=== PATIENT | male | born 1965 | race Caucasian/White ===

== ENCOUNTER 2016-09-25 13:10 | Emergency (ER) | payer BC ==
[2016-09-25] MEDS ORDERED: Aspirin Low Dose CHEW TAB* 81 MG PO ONE ×2 (13:26→13:56)
[2016-09-25 13:55] LABS: Hematocrit 44 % (42-52); Hemoglobin 14.9 g/dl (14.0-18.0); Mean Corpuscular HGB Conc 34 g/dl (31-36); Mean Corpuscular Hemoglobin 32 pg (27-31); Mean Corpuscular Volume 96 fL (80-94); Mean Platelet Volume 7 um3 (7.4-10.4); Red Blood Count 4.58 10^6/ul (4.0-5.4); Red Cell Distribution Width 13 % (10.5-15); White Blood Count 6.3 10^3/ul (3.5-10.8)
[2016-09-25 14:12] LABS: Albumin 4.4 g/dL (3.2-5.2); Calcium 9.5 mg/dL (8.6-10.3); EGFR Non-African American 71.5 (>60); Total Bilirubin 0.5 mg/dL (0.2-1.0); Total Protein 7.4 g/dL (6.4-8.9)
--- NOTE | 2016-09-25 14:49 | RAD ---
INDICATION: Chest pain COMPARISON: None. TECHNIQUE: Single AP portable view of the chest was obtained. FINDINGS: Image quality is compromised due to the relative inferiority of a portable chest x-ray. The heart and mediastinum exhibit normal size and contour. The lungs are grossly clear. There is no evidence of a large pleural effusion. Visualized bones are normal for the patient's age. IMPRESSION: No radiographic evidence for acute cardiopulmonary abnormality on this portable chest x-ray.
--- NOTE | 2016-09-25 17:56 | ED ---
Colleen Couch Michael, scribed for Stacia Jose MD on 09/25/16 at 1351 . HPI Chest Pain - HPI Summary HPI Summary: 51 y/o male comes to the ED presenting with intermittent episodes of CP that started 2 weeks ago. The pt is unable to describe the pain. He states it is "annoyance". The pain radiates down his LUE. The pain is not aggravated with deep breathes and it is alleviated with ASA. He states the last episode of CP started at 1100 today. The pt also presents with elevated bp of 177/103 at the ED, and last night it was 140/100. The FHx is significant for [place] before the age of 55 and PE. - History of Current Complaint Chief Complaint: EDChestPainROMI Time Seen by Provider: 09/25/16 13:25 Hx Obtained From: Patient, Medical Records Onset/Duration: Started Weeks Ago, Still Present Timing: Intermittent Initial Severity: Mild Current Severity: Mild Pain Intensity: 1 Pain Scale Used: 0-10 Numeric Chest Pain Location: Left Lateral Chest Pain Radiates: Yes Chest Pain Radiates To:: Arm - LUE Character: Other: - "annoyance" Aggravating Factor(s): Nothing Alleviating Factor(s): OTC Meds - ASA Associated Signs and Symptoms: Positive: Chest Pain, Other: - elevated blood pressure - Allergy/Home Medications Allergies/Adverse Reactions: Allergies Allergy/AdvReac Type Severity Reaction Status Date / Time No Known Allergies Allergy Verified 09/25/16 13:30 Home Medications: Home Medications Losartan Potassium [Cozaar] 50 mg PO DAILY 09/25/16 [History Confirmed 09/25/16] PMH/Surg Hx/FS Hx/Imm Hx Endocrine/Hematology History: Denies: Hx Diabetes Infectious Disease History: No Infectious Disease History: Denies: Traveled Outside the [place] in Last 30 Days - Family History Known Family History: Positive: None Negative: Cardiac Disease - Social History Occupation: Employed Full-time Lives: With Family Alcohol Use: Weekly Hx Substance Use: No Substance Use Type: Reports: None Review of Systems Negative: Fever Positive: Chest Pain, Other - elevated bp All Other Systems Reviewed And Are Negative: Yes Physical Exam Triage Information Reviewed: Yes Vital Signs On Initial Exam: Initial Vitals Temp Pulse Resp BP Pulse Ox 99.9 F 97 15 186/120 96 09/25/16 13:26 09/25/16 13:26 09/25/16 13:26 09/25/16 13:26 09/25/16 13:26 Vital Signs Reviewed: Yes Appearance: Positive: Well-Appearing, No Pain Distress Skin: Positive: Warm, Skin Color Reflects Adequate Perfusion, Dry Eyes: Positive: EOMI, NATHANIEL ENT: Positive: Pharynx normal, TMs normal Neck: Positive: Supple, Nontender Respiratory/Lung Sounds: Positive: Clear to Auscultation, Breath Sounds Present. Negative: Rales, Rhonchi, Wheezes Cardiovascular: Positive: RRR, Other - no gallops. Negative: Murmur, Rub Abdomen Description: Positive: Nontender, Soft, Other: - no rebound. Negative: Guarding Bowel Sounds: Positive: Present Musculoskeletal: Positive: Strength/ROM Intact. Negative: Edema Left, Edema Right Neurological: Positive: Sensory/Motor Intact, Alert, Oriented to Person Place, Time, CN Intact II-III Psychiatric: Positive: Affect/Mood Appropriate Diagnostics - Vital Signs Vital Signs Temp Pulse Resp BP Pulse Ox 09/25/16 13:26 99.9 F 97 15 186/120 96 - Laboratory Lab Results: Lab Results 09/25/16 09/25/16 09/25/16 Range/Units 13:38 13:38 13:38 WBC 6.3 (3.5-10.8) 10^3/ul RBC 4.58 (4.0-5.4) 10^6/ul Hgb 14.9 (14.0-18.0) g/dl Hct 44 (42-52) % MCV 96 H (80-94) fL MCH 32 H (27-31) pg MCHC 34 (31-36) g/dl RDW 13 (10.5-15) % Plt Count 216 (150-450) 10^3/ul MPV 7 L (7.4-10.4) um3 Neut % (Auto) 70.3 (38-83) % Lymph % (Auto) 21.6 L (25-47) % Cole % (Auto) 7.1 (1-9) % Eos % (Auto) 0.2 (0-6) % Baso % (Auto) 0.8 (0-2) % Absolute Neuts (auto) 4.4 (1.5-7.7) 10^3/ul Absolute Lymphs (auto) 1.4 (1.0-4.8) 10^3/ul Absolute Monos (auto) 0.4 (0-0.8) 10^3/ul Absolute Eos (auto) 0 (0-0.6) 10^3/ul Absolute Basos (auto) 0 (0-0.2) 10^3/ul Absolute Nucleated RBC 0 10^3/ul Nucleated RBC % 0 Sodium 137 (133-145) mmol/L Potassium 4.0 (3.5-5.0) mmol/L Chloride 105 (101-111) mmol/L Carbon Dioxide 25 (22-32) mmol/L Anion Gap 7 (2-11) mmol/L BUN 13 (6-24) mg/dL Creatinine 1.08 (0.67-1.17) mg/dL Est GFR ( Amer) 92.0 (>60) Est GFR (Non-Af Amer) 71.5 (>60) BUN/Creatinine Ratio 12.0 (8-20) Glucose 107 H (70-100) mg/dL Lactic Acid 1.2 (0.5-2.0) mmol/L Calcium 9.5 (8.6-10.3) mg/dL Total Bilirubin 0.50 (0.2-1.0) mg/dL AST 21 (13-39) U/L ALT 36 (7-52) U/L Alkaline Phosphatase 40 (34-104) U/L Troponin I 0.00 (<0.04) ng/mL Total Protein 7.4 (6.4-8.9) g/dL Albumin 4.4 (3.2-5.2) g/dL Globulin 3.0 (2-4) g/dL Albumin/Globulin Ratio 1.5 (1-3) 09/25/ Range/Units 17:00 WBC (3.5-10.8) 10^3/ul RBC (4.0-5.4) 10^6/ul Hgb (14.0-18.0) g/dl Hct (42-52) % MCV (80-94) fL MCH (27-31) pg MCHC (31-36) g/dl RDW (10.5-15) % Plt Count (150-450) 10^3/ul MPV (7.4-10.4) um3 Neut % (Auto) (38-83) % Lymph % (Auto) (25-47) % Cole % (Auto) (1-9) % Eos % (Auto) (0-6) % Baso % (Auto) (0-2) % Absolute Neuts (auto) (1.5-7.7) 10^3/ul Absolute Lymphs (auto) (1.0-4.8) 10^3/ul Absolute Monos (auto) (0-0.8) 10^3/ul Absolute Eos (auto) (0-0.6) 10^3/ul Absolute Basos (auto) (0-0.2) 10^3/ul Absolute Nucleated RBC 10^3/ul Nucleated RBC % Sodium (133-145) mmol/L Potassium (3.5-5.0) mmol/L Chloride (101-111) mmol/L Carbon Dioxide (22-32) mmol/L Anion Gap (2-11) mmol/L BUN (6-24) mg/dL Creatinine (0.67-1.17) mg/dL Est GFR ( Amer) (>60) Est GFR (Non-Af Amer) (>60) BUN/Creatinine Ratio (8-20) Glucose (70-100) mg/dL Lactic Acid (0.5-2.0) mmol/L Calcium (8.6-10.3) mg/dL Total Bilirubin (0.2-1.0) mg/dL AST (13-39) U/L ALT (7-52) U/L Alkaline Phosphatase (34-104) U/L Troponin I 0.00 (<0.04) ng/mL Total Protein (6.4-8.9) g/dL Albumin (3.2-5.2) g/dL Globulin (2-4) g/dL Albumin/Globulin Ratio (1-3) Result Diagrams: 09/25/16 13:38 09/25/16 13:38 Lab Statement: Any lab studies that have been ordered have been reviewed, and results considered in the medical decision making process. - Radiology CXR Xray Interpretation: No Acute Changes Radiology Interpretation Completed By: ED Physician - EKG EK EKG Rhythm: Sinus Rhythm ST Segment: Normal Ectopy: None Chest Pain Course/Dx - Course Course Of Treatment: pt aware he needs to return if chest pain returns and will f/u with pmd and get a stress test - Diagnoses Provider Diagnoses: Chest pain Provider Diagnoses: (Ruled Out): Chest pain as manifestation of blood transfusion reaction Discharge - Discharge Plan Condition: Stable Disposition: HOME The documentation as recorded by the Colleen root Michael accurately reflects the service I personally performed and the decisions made by me, Stacia Jose MD.
[2016-09-25 18:14] VITALS: BP 148/105
== END 2016-09-25 18:10 | disposition home or self-care (01) ==
LOC: ED 13:10
DX: R07.9 Chest pain, unspecified (principal); R03.0 Elevated blood-pressure reading, without diagnosis of hypertension
CPT/HCPCS: 36415; 71010; 80053; 83605; 84484; 85025; 93005; 99283; A9270-GY

== ENCOUNTER 2016-12-26 00:41 | Emergency (ER) | payer BC ==
[2016-12-26 02:02] VITALS: BP 145/99
--- NOTE | 2016-12-26 06:43 | ED ---
Lisa Couch Alfonso, scribed for Hussein Jean MD on 12/26/16 at 0109 . Throat Pain/Nasal Congestion - HPI Summary HPI Summary: This patient is a 51 year old male presenting to [facility] c/o constant left nare epistaxis since 4 hours ago. Symptoms began suddenly while at rest. He reports blood goes down his throat when in the supine position. Symptoms aggravated by position and alleviated by nothing. He reports nasal congestion. He denies a fever or known URI. PMHx of epistaxis alleviated by spontaneous resolution. - History of Current Complaint Chief Complaint: EDEpistaxis Time Seen by Provider: 12/26/16 00:54 Hx Obtained From: Patient Onset/Duration: Sudden Onset, Lasting Hours - 4 hours, Still Present Severity: Moderate Associated Signs And Symptoms: Positive: Sinus Discomfort - Left nare epistaxis - Allergies/Home Medications Allergies/Adverse Reactions: Allergies Allergy/AdvReac Type Severity Reaction Status Date / Time No Known Allergies Allergy Verified 12/26/16 00:47 PMH/Surg Hx/FS Hx/Imm Hx Endocrine/Hematology History: Denies: Hx Diabetes Cardiovascular History: Reports: Hx Hypertension Infectious Disease History: No Infectious Disease History: Denies: Traveled Outside the [place] in Last 30 Days - Family History Known Family History: Negative: Cardiac Disease - Social History Alcohol Use: Weekly Hx Substance Use: No Substance Use Type: Reports: None Smoking Status (MU): Never Smoked Tobacco Review of Systems Negative: Fever Positive: Epistaxis - Left nare since 4 hours [employer]. , Other - Positive nasal congestion Positive: Other - Negative URI All Other Systems Reviewed And Are Negative: Yes Physical Exam Triage Information Reviewed: Yes Vital Signs On Initial Exam: Initial Vitals Temp Pulse Resp BP Pulse Ox 97.9 F 110 16 170/109 95 12/26/16 00:43 12/26/16 00:43 12/26/16 00:43 12/26/16 00:43 12/26/16 00:43 Vital Signs Reviewed: Yes Appearance: Positive: Well-Appearing, No Pain Distress Skin: Positive: Warm Head/Face: Positive: Normal Head/Face Inspection Eyes: Positive: NATHANIEL ENT: Positive: Pharynx normal, Other - try blood lt nares, no active bleeding Neck: Positive: Supple Respiratory/Lung Sounds: Positive: Clear to Auscultation, Breath Sounds Present Cardiovascular: Positive: RRR Musculoskeletal: Positive: Strength/ROM Intact Neurological: Positive: Alert, Oriented to Person Place, Time, Normal Gait Psychiatric: Positive: Affect/Mood Appropriate - Rachel Coma Scale Coma Scale Total: 15 Diagnostics - Vital Signs Vital Signs Temp Pulse Resp BP Pulse Ox 12/26/16 00:53 97.9 F 110 16 170/109 95 12/26/16 00:43 97.9 F 110 16 170/109 95 - Laboratory Lab Statement: Any lab studies that have been ordered have been reviewed, and results considered in the medical decision making process. Re-Evaluation - Re-Evaluation First Eval Change: Improved - no bleeding after pressure applied to bridge of nose for 30 minutes pressure removed, pt observed another 20 minutes, no bleeding. Pt d/c home, return if bleeding recurs EENT Course/Dx - Diagnoses Provider Diagnoses: Epistaxis Discharge - Discharge Plan Condition: Improved Disposition: HOME Patient Education Materials: Nosebleed (ED) Referrals: Jonathan Strong MD [Medical Doctor] - 1 Week The documentation as recorded by the Lisa root Alfonso accurately reflects the service I personally performed and the decisions made by , Hussein Jean MD.
== END 2016-12-26 01:58 | disposition home or self-care (01) ==
LOC: ED 00:41
DX: R04.0 Epistaxis (principal)
CPT/HCPCS: 99282

== ENCOUNTER 2018-07-10 14:19 | Emergency (ER) | payer BC ==
--- NOTE | 2018-07-10 14:54 | ED ---
Throat Pain/Nasal Congestion - HPI Summary HPI Summary: A 53 y/o male presents to [facility] with a chief complaint of epistaxis since the morning of 07/12/18. He claims that he has had 4-5 episodes of epistaxis on 03/22. On 07/04/18 and 07/08/18 he also reports nosebleeds that have been stopped. He rates his pain as a 0/10. He reports taking a low dose of aspirin daily and occasionally takes advil. He reports that his nosebleed started on 03/22 when he got out of the shower. He uses baseboard heat and has a humidifier but usually does not run it in the bedroom. He has a Hx of HTN and is on 75 mg Cozaar. He claims that he has seen an ENT before and everything was fine. He denies Fever, Chills, Erythema (eyes), Sore throat, Chest pain, Shortness of Breath, Cough, Abdominal pain, Vomiting, Nausea, Dysuria, Hematuria , Myalgia, Edema, Rash and Dizziness. - History of Current Complaint Chief Complaint: EDEpistaxis Time Seen by Provider: 07/10/18 14:33 Hx Obtained From: Patient Onset/Duration: Sudden Onset, Lasting Hours, Still Present Associated Signs And Symptoms: Positive: Negative Cough: None - Allergies/Home Medications Allergies/Adverse Reactions: Allergies Allergy/AdvReac Type Severity Reaction Status Date / Time No Known Allergies Allergy Verified 07/11/18 10:37 PMH/Surg Hx/FS Hx/Imm Hx Endocrine/Hematology History: Denies: Hx Diabetes Cardiovascular History: Reports: Hx Hypertension Infectious Disease History: No Infectious Disease History: Denies: Traveled Outside the [place] in Last 30 Days - Family History Known Family History: Negative: Cardiac Disease, Diabetes - Social History Alcohol Use: Daily Hx Substance Use: No Substance Use Type: Reports: None Smoking Status (MU): Never Smoked Tobacco Review of Systems Negative: Fever, Chills Negative: Erythema Positive: Epistaxis. Negative: Sore Throat Negative: Chest Pain Negative: Shortness Of Breath, Cough Negative: Abdominal Pain, Vomiting, Nausea Negative: dysuria, hematuria Negative: Myalgia, Edema Negative: Rash Neurological: Negative - dizziness All Other Systems Reviewed And Are Negative: Yes Physical Exam - Summary Physical Exam Summary: Constitutional: Well-developed, Well-nourished, Alert. (-) Distressed Skin: Warm, Dry HENT: Normocephalic; Atraumatic, Epistaxis predominately right, episodically left nare. Routinely spitting out maverick blood. Eyes: Conjunctiva normal Neck: Musculoskeletal ROM normal neck. (-) JVD, (-) Stridor, (-) Tracheal deviation Cardio: Rhythm regular, rate normal, Heart sounds normal; Intact distal pulses; The pedal pulses are 2+ and symmetric. Radial pulses are 2+ and symmetric. (-) Murmur Pulmonary/Chest wall: Effort normal. (-) Respiratory distress, (-) Wheezes, (-) Rales Abd: Soft, (-) epigastric tenderness, (-) Distension, (-) Guarding, (-) Rebound Musculoskeletal: (-) Edema Lymph: (-) Cervical adenopathy Neuro: Alert, Oriented x3 Psych: Mood and affect Normal Triage Information Reviewed: Yes Vital Signs On Initial Exam: Initial Vitals Temp Pulse Resp BP Pulse Ox 97.8 F 106 18 176/114 96 07/10/18 14:21 07/10/18 14:21 07/10/18 14:21 07/10/18 14:21 07/10/18 14:21 Vital Signs Reviewed: Yes Procedures - Procedure Summary Procedure Summary: Nasal packing A postierior 7.5 cm rhino was placed with 15 mls of air with good turgor in the pile up alone. Bleeding from both nostrils was not resolved with anterior packing. Diagnostics - Vital Signs Vital Signs Temp Pulse Resp BP Pulse Ox 07/10/18 14:21 97.8 F 106 18 176/114 96 - Laboratory Lab Statement: Any lab studies that have been ordered have been reviewed, and results considered in the medical decision making process. Re-Evaluation - Re-Evaluation First Eval Re-Evaluation Time: 16:12 Change: Improved Comment: Bleeding is stopped. Patient is ready for discharge. EENT Course/Dx - Course Course Of Treatment: A 53 y/o male presents to [facility] with a chief complaint of epistaxis since the morning of 07/12/18. His physical exam revealed Epistaxis predominately right, episodically left nare. Routinely spitting out maverick blood. A postierior 7.5 cm rhino was placed with 15 mls of air with good turgor in the pile up alone. Bleeding from both nostrils was not resolved with anterior packing. In the ED course the patient was given topical Lidocaine. Case discussed with Dr. Gomez, his PCP, who recommended Cozaar 100mg once per day and wants to make sure the patient follows up with him as soon as possible. The patient will be discharged with prescriptions for Augmentin and Cozaar and given instructions to return to the ED if he experiences any changing or worsening symptoms. - Diagnoses Provider Diagnoses: Posterior epistaxis - Provider Notifications Discussed Care Of Patient With: Hernan Gomez Time Discussed With Above Provider: 16:05 Instructed by Provider To: Other - Recommends Cozaar 100mg once daily. He wants to make sure the patient follows up with him as soon as possible. Discharge - Sign-Out/Discharge Documenting (check all that apply): Patient Departure - Discharge Plan Condition: Stable Disposition: HOME Prescriptions: Losartan TAB* [Cozaar TAB*] 100 mg PO DAILY #56 tab Patient Education Materials: Nosebleed (ED) Referrals: Hernan Gomez MD [Primary Care Provider] - As Soon As Possible Additional Instructions: Follow up with Dr. Gomez as soon as possible. RETURN TO THE EMERGENCY DEPARTMENT FOR CHANGING OR WORSENING SYMPTOMS - Billing Disposition and Condition Condition: STABLE Disposition: Home - Attestation Statements Document Initiated by Damion: Yes Documenting Scribe: Lopez Brown Provider For Whom Damion is Documenting (Include Credential): Douglas Mackey MD Scribe Attestation: Lopez Couch, scribed for Douglas Mackey MD on 07/13/18 at 1809. Scribe Documentation Reviewed: Yes Provider Attestation: The documentation as recorded by the Lopez root accurately reflects the service I personally performed and the decisions made by me, Douglas Mackey MD Status of Scribe Document: Viewed
[2018-07-10] MEDS ORDERED: Lidocaine 2% JELLY* 6 ML JELLY TOPICAL ONE (14:55)
[2018-07-10] MEDS ORDERED: Ondansetron ODT TAB* 4 MG ONE (15:13)
[2018-07-10] MEDS ORDERED: Amoxicillin/Clavulanate TAB* 875 MG PO ONE (15:29)
[2018-07-10] MEDS ORDERED: Losartan TAB* 25 MG PO ONE (15:29)
[2018-07-10 16:57] VITALS: BP 179/121
== END 2018-07-10 16:56 | disposition home or self-care (01) ==
LOC: ED 14:19
DX: R04.0 Epistaxis (principal); I10 Essential (primary) hypertension
CPT/HCPCS: 30905; 99281; A9270-GY

== ENCOUNTER 2018-07-11 06:33 | Day surgery (SDC) | payer BC ==
[2018-07-11] MEDS ORDERED: Ondansetron ODT TAB* 4 MG PO ONE (07:21)
[2018-07-11] MEDS ORDERED: Ondansetron ODT TAB* 4 MG ONE (07:22)
[2018-07-11] MEDS ORDERED: Phenylephrine 1% NASAL* 15 ML BOT BOTH NARES ONE (07:29)
[2018-07-11] MEDS ORDERED: Lidocaine 4% TOPICAL* 50 ML TOP.SOLN TOPICAL ONE (07:29)
[2018-07-11] MEDS ORDERED: Phenylephrine 0.5% NASAL* BTL ONE (07:33)
[2018-07-11] MEDS ORDERED: Tranexamic Acid 1,000 MG/10 ML SDV IV ONE (08:00)
[2018-07-11] MEDS ORDERED: Losartan TAB* 25 MG PO ONE (08:39)
--- NOTE | 2018-07-11 09:23 | ED ---
Throat Pain/Nasal Congestion - HPI Summary HPI Summary: Patient is a 53-year-old male who presents emergency department for epistaxis that started early this morning. Patient was seen in the ER yesterday and had an anterior/posterior Rhino Rocket placed in the right nare. Patient states he had no bleeding last night until he lied down and bleeding started early this morning. Patient denies chest pain, lightheadedness, dizziness, shortness of breath. He is not anticoagulated. Patient's blood pressure was noted to be elevated yesterday and his Cozaar was increased 100 mg. Symptoms are moderate in severity. No current modifying factors. - History of Current Complaint Chief Complaint: EDEpistaxis Time Seen by Provider: 07/11/18 07:01 Hx Obtained From: Patient - Allergies/Home Medications Allergies/Adverse Reactions: Allergies Allergy/AdvReac Type Severity Reaction Status Date / Time No Known Allergies Allergy Verified 07/11/18 10:37 PMH/Surg Hx/FS Hx/Imm Hx Previously Healthy: Yes Endocrine/Hematology History: Denies: Hx Diabetes Cardiovascular History: Reports: Hx Hypertension Infectious Disease History: No Infectious Disease History: Denies: Traveled Outside the [place] in Last 30 Days - Family History Known Family History: Positive: None Negative: Cardiac Disease, Diabetes - Social History Occupation: Employed Full-time Lives: With Family Alcohol Use: Daily Alcohol Amount: 2-3 glasses of wine Hx Substance Use: No Substance Use Type: Reports: None Smoking Status (MU): Never Smoked Tobacco Review of Systems Positive: Epistaxis Cardiovascular: Negative Respiratory: Negative Neurological: Negative All Other Systems Reviewed And Are Negative: Yes Physical Exam Triage Information Reviewed: Yes Vital Signs On Initial Exam: Initial Vitals Temp Pulse Resp BP Pulse Ox 97.1 F 129 18 174/118 97 07/11/18 06:34 07/11/18 06:34 07/11/18 06:34 07/11/18 06:34 07/11/18 06:34 Vital Signs Reviewed: Yes Appearance: Positive: Well-Appearing - Pt. sitting on side of bed in NAD. present. Skin: Positive: Warm, Dry Head/Face: Positive: Normal Head/Face Inspection Eyes: Positive: Normal, EOMI, NATHANIEL ENT: Positive: Other - Saturated packing in right nare. Small amount of blood in left nare. Blood in posterior pharynx. Pt. holding an emesis bag 07/07 full of blood. Neck: Positive: Supple Neurological: Positive: Normal, CN Intact II-III Psychiatric: Positive: Affect/Mood Appropriate Diagnostics - Vital Signs Vital Signs Temp Pulse Resp BP Pulse Ox 07/11/18 08:37 173/125 07/11/18 06:34 97.1 F 129 18 174/118 97 - Laboratory Lab Statement: Any lab studies that have been ordered have been reviewed, and results considered in the medical decision making process. EENT Course/Dx - Course Course Of Treatment: Pt. presenting with returning epistaxis with rhino rocket. ENT immediately consulted. VS stable. HTN. I spoke with Dr. Strong who was able to cauterize pt. in the ED with good success. BP 173/125. Pt. given his morning dose of losartan. 0936: BP improved to 151/95. 0956: Pt. started bleeding from left nare and spitting out large clots. I spoke with Dr. Ligia razo and he would like packing placed and will take pt. to the OR for further care. Dr. Hairston placed balloon with good relief. Pt. transferred to OR stable. - Differential Diagnoses Differential Diagnoses: Epistaxis - Diagnoses Provider Diagnoses: Epistaxis, Hypertension Discharge - Sign-Out/Discharge Documenting (check all that apply): Patient Departure All imaging exams completed and their final reports reviewed: No Studies - Discharge Plan Condition: Stable Disposition: ADMITTED TO [facility] - Billing Disposition and Condition Condition: STABLE Disposition: Admitted to [facility]
[2018-07-11] MEDS ORDERED: Lidocaine 2% JELLY* 6 ML JELLY TOPICAL ONE (10:17)
--- NOTE | 2018-07-11 10:23 | CONS ---
CONSULTATION REPORT: DATE OF CONSULT: 07/11/18 REASON FOR CONSULT: ER consultation for epistaxis. HISTORY OF PRESENT ILLNESS: The patient presented initially yesterday with epistaxis and was treated. He had a balloon pack placed, was sent home, but returned this morning, bleeding in the middle of the night again. He has been having some blood pressure problems and this morning, it is 174/118. His losartan dose was just increased. I was asked because of the bleeding despite the pack. PHYSICAL EXAM: On physical examination, he has a balloon Merocel pack on the right nostril, which is were he has been bleeding. This was let down, his nose was examined. He had diffuse excoriation of the mucosa from the pack being placed. He had some bleeding along this. He was packed with cottonoids with oxymetazoline and 1% lidocaine. These were removed and endoscopy was performed. I could not find a definitive bleeding site because of so much mucosal excoriation. I then packed them with cotton impregnated with tranexamic acid and left that in for about 15 minutes. This was removed. I then thought I potentially saw the bleeding site in the posterior midseptum. I cauterized this with silver nitrate, as I did the anterior septum where he had a little bit of oozing. I re-sprayed them with some of tranexamic acid. He had no further bleeding at this time. ASSESSMENT AND PLAN: The patient has been having hypertension and right-sided epistaxis. He really needs to make sure he gets that blood pressure under control. He is supposed to start a higher dose of his medication, which was prescribed yesterday. I also recommended he start getting more exercise to help as well. For the nosebleed, hopefully, I have taken care of it and I cannot guarantee it without having put a new pack in, but he seems to be holding at this time. I gave his the left over Rich-Synephrine and the cotton ball, showed her how to put that in the nose and squeezing. I also gave her a Merocel pack. I am available the rest of the day and he already has an appointment with Dr. Amado tomorrow. [id number]/[facility] #: [id number] ROBERTO CARLOS
[2018-07-11] MEDS ORDERED: Lidocaine 4% TOPICAL* 50 ML TOP.SOLN ONE (10:28)
[2018-07-11] MEDS ORDERED: Oxymetazoline 0.05% NASAL SPR* 15 ML BTL ONE (10:28)
[2018-07-11] MEDS ORDERED: fentaNYL* 50 MCG/ML 2 ML VIAL (100 MCG VIAL) ONE (10:30)
[2018-07-11] MEDS ORDERED: Midazolam* 1 MG/ML 2 ML VIAL (2 MG) ONE (10:30)
[2018-07-11] MEDS ORDERED: Propofol* 10 MG/ML 20 ML BTL ONE (10:32)
[2018-07-11] MEDS ORDERED: Silver Nitrate/Potassium Nitr* 1 EA STICK ONE (10:34)
[2018-07-11] MEDS ORDERED: Succinylcholine* 20 MG/ML 10 ML VIAL ONE (10:35)
[2018-07-11] MEDS ORDERED: hydrALAZINE IV* 20 MG/ML VIAL IV SLOW PU ONE (10:46)
[2018-07-11] MEDS ORDERED: hydrALAZINE IV* 20 MG/ML VIAL ONE (10:50)
[2018-07-11 11:00] LABS: Hematocrit 43 % (42-52); Hemoglobin 14.5 g/dl (14.0-18.0); Mean Corpuscular HGB Conc 34 g/dl (31-36); Mean Corpuscular Hemoglobin 33 pg (27-31); Mean Corpuscular Volume 96 fL (80-94); Mean Platelet Volume 7.1 fL (7.4-10.4); Platelet Count 237 10^3/ul (150-450); Red Blood Count 4.45 10^6/ul (4.00-5.40); Red Cell Distribution Width 13 % (10.5-15); White Blood Count 10.3 10^3/ul (3.5-10.8)
[2018-07-11] MEDS ORDERED: Lactated Ringers 1000 ML Bag* 1,000 ML IV SCH (11:13)
[2018-07-11 11:15] LABS: BUN/Creatinine Ratio 15.8 (8-20); Calcium 8.7 mg/dL (8.6-10.3); EGFR Non-African American 82.3 (>60); Potassium 3.7 mmol/L (3.5-5.0)
[2018-07-11] MEDS ORDERED: Ondansetron INJ* 2 MG/ML VIAL ONE (12:15)
[2018-07-11] MEDS ORDERED: Metoclopramide IV* 5 MG/ML 2 ML VIAL ONE (12:15)
[2018-07-11] MEDS ORDERED: DiMENhydriNATE IV* 50 MG/ML VIAL IV PUSH PRN (12:27)
[2018-07-11] MEDS ORDERED: fentaNYL* 50 MCG/ML 2 ML VIAL (100 MCG VIAL) IV PRN (12:27)
[2018-07-11] MEDS ORDERED: PROCHLORPERAZINE INJ 5 MG/ML 2 ML VIAL IV PRN (12:27)
[2018-07-11] MEDS ORDERED: HYDROcodone/ACETAMIN 5-325 MG* 1 TAB PO PRN (12:27)
[2018-07-11] MEDS ORDERED: Naloxone* 0.4 MG/ML 1 ML VIAL IV PRN (12:27)
[2018-07-11] MEDS ORDERED: Acetaminophen TAB* 325 MG PO PRN (12:27)
[2018-07-11 14:23] VITALS: BP 139/87
[2018-07-11] MEDS ORDERED: Glycopyrrolate IV* 0.2 MG/ML 1 ML VIAL ONE (14:56)
[2018-07-11] MEDS ORDERED: Neostigmine Methylsulfate* 1 MG/ML 10 ML VIAL (1 mg/ml) ONE (14:56)
--- NOTE | 2018-07-11 17:03 | OP ---
DATE OF OPERATION: 07/11/18 - [facility] DATE OF : 61 SURGEON: Jonathan Strong MD. PRE-OP DIAGNOSIS: Epistaxis. POST-OP DIAGNOSIS: Epistaxis. OPERATIVE PROCEDURE: Endoscopic control of epistaxis with extensive cautery and packing under general endotracheal anesthesia. COMPLICATIONS: None. DISPOSITION: Good. SPECIMEN: None. BLOOD LOSS: A few milliliters during this procedure. DESCRIPTION OF PROCEDURE: The patient was initially seen in the emergency room this morning for epistaxis. He had been in the day before and had a Rhino Rocket placed in the right side. He continued to bleed behind this. I removed that there, did some cautery, used some tranexamic acid and he seemed to be okay. About an hour after that, he started bleeding again and the ER doctor put a balloon pack in the left side where he was bleeding at this time and I booked him for the operating room. I placed on the supine position on the operating room table. General anesthesia was induced. He was orotracheally intubated. The balloon pack was removed and he examined. He had diffuse excoriation of his mucosa more on the right from the previous procedures with diffuse oozing from his septum and middle turbinate. On the right side under endoscopic guidance, I was able to see. He has some bleeding off the vomer as it interdigitated with the septum. I used the suction cautery to cauterize bilaterally where he was oozing and then I packed both sides with fibrillar to try to control these areas. At the end of the case, there was not active bleeding. His oropharynx was clear without any bloody drainage down the back. The big concern for which I had previously spoken to him about in the emergency room and then with his as I talked to her was he seems to be having some labile hypertension and my concern is that the bleeding is secondary to that. He has been started on a higher dose of Cozaar as of yesterday, but has not actually started taking it yet. [id number] #: [id number] MTDD
== END 2018-07-11 10:21 | disposition home or self-care (01) ==
LOC: ED 06:33 → SDS 10:21
PROVIDERS: ATTEND Otolaryngology
DX: R04.0 Epistaxis (principal); I10 Essential (primary) hypertension
CPT/HCPCS: 36415; 80048; 85027; 99285; A9270-GY; J0330; J0360; J2250; J2405; J2704; J2710; J2765; J3010